=== PATIENT | male | born 1965 | race Caucasian/White ===

== ENCOUNTER → 2017-03-16 | Outpatient (CLI) | payer BC, OTHER ==
[2016-06-10 02:35] VITALS: BP 120/70
--- NOTE | 2017-03-16 13:28 | RAD ---
Examination: Chest, PA and lateral views History: SOB, tumor, cancer Comparison reference: 03/01/2016 Findings: The heart is partly obscured but does not appear significantly enlarged; it is partly obscu red on the left by marked elevation of the hemidiaphragm and gaseous distention of the stomach. There is partial obscuration of the right lower cardiac margin by airspace disease in the right lower lung . The upper lobes are clear. A left-sided surgical catheter terminates in the region of the superior vena cava. There is no evidence for pneumothorax. Impression: 1. Persistent marked elevation of the left diaphragm with significant gas and fluid distention of the stomach. 2. Compression atelectasis in the left lower lung. The heart and mediastinum are deviated to the righ t. 3. Interval appearance of right lower lobe infiltrate/atelectasis. There is probable right pleural ef fusion. Reported By:
== END ==
LOC: RAD 12:51
PROVIDERS: ATTEND Nurse Practitioner Family
DX: R06.09 Other forms of dyspnea (principal)
CPT/HCPCS: 71020

== ENCOUNTER → 2017-08-07 | Outpatient (CLI) | payer BC, OTHER ==
[2016-06-10 02:35] VITALS: BP 120/70
[2017-08-07 16:16] LABS: BASOPHILS # (AUTO) 0.2 X10^3/uL (0.0-0.1); BASOPHILS % (AUTO) 1.8 % (0.2-1.0); EOSINOPHILS # (AUTO) 0.3 x10^3/uL (0.0-0.2); EOSINOPHILS % (AUTO) 2.6 % (0.9-2.9); HEMATOCRIT 32.9 % (42.0-54.0); HEMOGLOBIN 10.8 g/dL (13.5-18.0); LYMPHOCYTES # (AUTO) 1.4 X10^3/uL (1.3-2.9); LYMPHOCYTES % (AUTO) 12.1 % (21.0-51.0); MEAN CORPUSCULAR HEMOGLOBIN 26.4 pg (27.0-34.0); MEAN CORPUSCULAR HGB CONC 32.7 g/dL (33.0-35.0); MEAN CORPUSCULAR VOLUME 80.6 fL (80.0-100.0); MEAN PLATELET VOLUME 9.7 fL (7.4-11.0); MONOCYTES # (AUTO) 1.4 x10^3/uL (0.3-0.8); NEUTROPHILS # (AUTO) 8.1 x10^3/uL (2.2-4.8); NEUTROPHILS % (AUTO) 71.5 % (42.0-75.0); PLATELET COUNT 560 X10^3/uL (150.0-450.0); RED BLOOD COUNT 4.08 X10^6/uL (4.7-6.0); RED CELL DISTRIBUTION WIDTH 18.4 % (11.6-16.5); WHITE BLOOD COUNT 11.4 X10^3/uL (3.6-10.0)
[2017-08-07 16:25] LABS: ANISOCYTOSIS SLIGHT; BLOOD UREA NITROGEN 25 mg/dL (7-18); CALCIUM 9.3 mg/dL (8.5-10.1); CARBON DIOXIDE 33.3 mmol/L (21-32); CHLORIDE 100 mmol/L (98-107); COR NA(FOR HYPERGLY) 142 mmol/L (136-145); CREATININE 0.97 mg/dL (0.70-1.30); HYPOCHROMASIA SLIGHT; PHOSPHORUS 4.3 mg/dL (2.6-4.7); PLATELET MORPHOLOGY COMMENT NORMAL (NORMAL); SODIUM 140 mmol/L (136-145); eGFR BLACK RACES > 60 (>60); eGFR NON BLACK RACES > 60 (>60)
== END ==
LOC: LAB 15:50
PROVIDERS: ATTEND Family Medicine
DX: I26.99 Other pulmonary embolism without acute cor pulmonale (principal); C78.6 Secondary malignant neoplasm of retroperitoneum and peritoneum
CPT/HCPCS: 36415; 80048; 83735; 84100; 85025; 85610; 85730